=== PATIENT | female | born 1950 | race Caucasian/White ===

== ENCOUNTER 2020-12-15 06:23 | Day surgery (SDC) | payer OTHER ==
[2020-12-13 15:16] LABS: Absolute Lymphocytes (CBC) 1.8 K/uL (0.7-4.9); Basophils % 0.5 % (0-1.3); Hematocrit 38.3 % (36.0-45.0); Lymphocytes % 25.6 % (15.3-44.8); MPV 7.1 fL (7.6-11.3); RBC Red Blood Cell Count 4.23 M/uL (3.86-4.86)
--- NOTE | 2020-12-13 16:23 | RAD REPORT ---
EXAM DESCRIPTION: RAD - Chest Pa And Lat (2 Views) - 12/13/2020 3:55 pm CLINICAL HISTORY: PRE OP SCREENING COMPARISON: No comparisons FINDINGS: No evidence of edema or pneumonia. The heart size is within normal limits.No acute osseous abnormality. No significant pleural effusions or pneumothorax. Surgical clips in the right upper patricia drant IMPRESSION: No acute cardiopulmonary disease.
--- NOTE | 2020-12-14 16:57 | EKG ---
Test Date: 2020-12-13 Test Time: 14:18:07 Publicity Agent: RYAN MEASUREMENT RESULTS: Intervals: Rate: 59 GA: 144 QRSD: 84 QT: 424 QTc: 419 [place]: P: 52 GA: 144 QRS: 42 T: 16 INTERPRETIVE STATEMENTS: Sinus bradycardia Nonspecific T wave abnormality Abnormal ECG No previous ECG available for comparison Electronically Signed On 12-14-20 16:53:48 CDT by Jake Davidson
[2020-12-15] MEDS ORDERED: Ringers Lactate 1,000 ML IV ONE ×2 (07:07→11:15)
[2020-12-15] MEDS ORDERED: CEFAZOLIN/SWI 1gm 0 GM/0 ML SYR ONE (07:07)
[2020-12-15] MEDS ORDERED: METHYLENE BLUE 0.5% 10 ML AMP ONE (09:32)
[2020-12-15] MEDS ORDERED: MIDAZOLAM HCL 2 MG/2 ML INJ ONE (09:46)
[2020-12-15] MEDS ORDERED: FENTANYL CITR 250 MCG/5 ML ONE (09:47)
[2020-12-15] MEDS ORDERED: propofoL 200 MG/20 ML VIAL IV ONE (09:47)
[2020-12-15] MEDS ORDERED: ROCURONIUM 50 MG/5 ML VIAL IV ONE (09:48)
[2020-12-15] MEDS ORDERED: LIDOCAINE 2% MPF 5 ML VIAL ONE (09:48)
[2020-12-15] MEDS ORDERED: ONDANSETRON 4 MG/2 ML VIAL ONE (10:03)
[2020-12-15] MEDS ORDERED: dexAMETHasone 10 MG/ML VIAL ONE (10:03)
[2020-12-15] MEDS ORDERED: CEFAZOLIN/SWI 1gm 1 GM/10 ML SYR ONE (10:20)
[2020-12-15] MEDS ORDERED: GLYCOPYRROLATE 0.2 MG/ML SYR ONE (10:59)
[2020-12-15] MEDS ORDERED: KETOROLAC 30 MG/ML INJ ONE (11:11)
[2020-12-15] MEDS ORDERED: Mastisol Adhesive Liq ONE (11:22)
--- NOTE | 2020-12-15 11:42 | RAD REPORT ---
EXAM DESCRIPTION: NM - Lymphoscintigraphy - 12/15/2020 7:44 am CLINICAL HISTORY: Breast cancer COMPARISON: None. TECHNIQUE: Four injections of 0.01 millicuries technetium filtered sulfur colloid administered into the the michael arerolar region of the right breast. The injections were placed at Twelve o'clock, 3 o'c lock, 6 o'clock and 9 o'clock positions. Subsequently a scintigram was obtained which demonstrated the radiotracer within these locations. IMPRESSION: Right breast lymphoscintigram FINDINGS: Four injections of 0.1 millicurie of technetium filtered sulfur colloid was performed arou nd the nipple.
--- NOTE | 2020-12-15 11:44 | RAD REPORT ---
EXAM DESCRIPTION: US - Brst,Preop NL Wire Init w/Guid - 12/15/2020 8:14 am CLINICAL HISTORY: Breast cancer FINDINGS: The skin, subcutaneous tissues and breast tissue were anesthetized with lidocaine. Under sonographic guidance a Kopan's hook wire was placed into the suspicious mass at the 5 o'clock p osition in the left breast. The patient then left for the surgical department IMPRESSION: Ultrasound-guided needle wire localization of a left breast mass
[2020-12-15] MEDS: MORPHINE 4 MG/ML SYR ONE ×2 (11:56→12:01)
[2020-12-15 12:11] VITALS: O2SAT 96
--- NOTE | 2020-12-15 12:37 | OP ---
Date of Procedure: 12/15/2020 Surgeon: Lobo Tate MD Video Game Designer: CHARITY Mcpherson. Preoperative Diagnosis: Left breast cancer. Postoperative Diagnosis: Left breast cancer. Procedures: Needle localization, left breast mastectomy and sentinel node biopsy. Estimated Blood Loss: Minimal. Specimens: [place] node, which was negative for metastatic disease and left mastectomy, margins wer e free. Findings: As above. Anesthesia: General. Complications: None. Drains: FROILAN #10 flat x1. Disposition: The patient tolerated the procedure in stable condition and taken to Recovery in good g eneral condition. Procedure In Detail: The patient was brought to the OR and placed in supine position. General anest hesia begun. The patient was prepped and draped in the usual sterile fashion after the patient was i njected with blue dye under sterile conditions around the nipple areolar complex and the breast was m assaged for 5 minutes. Then once the patient was prepped and draped, tunneling device was used to id entify the sentinel node on the left axilla. All the appropriate counts were recorded and visible no n-blue lymph node was identified in the left axilla 2 or 3 cm and then sent to pathology and no evide nce of metastatic disease was identified. This wound was irrigated, cleaned and then bleeding contro lled with cautery, and a 3-0 chromic was used to approximate the subcutaneous tissue and close the sk in. Then, ellipse of skin approximately 20 x 10 cm was made around the needle localization and the n ipple-areolar complex in the left breast and then flaps were created superiorly to the clavicle, infe riorly to the insertion of the rectus abdominis muscle, laterally to the anterior border of the latis simus dorsi muscle, and then medially to the sternal edge and then all the breast tissue off the pect oralis fascia was removed and sent to pathology. Confirmation was made that the specimen was in ther e with good margins. The entire wound was irrigated. Bleeding controlled with cautery. Tyron-Pra tt drain #10 flat placed and secured with 3-0 nylon. A 2-0 chromic and 3-0 chromic were used to appr oximate the subcutaneous tissue and close the skin. Sterile dressing applied. The patient awakened and taken to Recovery in good general condition. Discharge Note: The patient will go to Day Surgery and home when stable. Disposition: Home. Condition: Stable. Discharge Instructions: Resume home medications and diet. Activity as tolerated. No heavy lifting. Keep dressing clean, dry. Sponge bath only. Record FROILAN q.12. Bring records to the office __ incentive spirometry as ordered. Tylenol No.3 one tablet p.o. q.4 p.r.n. pain, Keflex 500 mg p.o. q.6. /MODL Voice ID: [id number] Report ID: [id number]
[2020-12-15] MEDS ORDERED: HYDROCODONE/APAP 7.5/325 MG TAB ONE (13:02)
[2020-12-15 14:09] VITALS: BP 161/75; TEMP 98
== END 2020-12-15 13:48 | disposition home or self-care (01) ==
LOC: RAD 06:23
PROVIDERS: ATTEND Surgery
PROC: 07B60ZX Excision of Left Axillary Lymphatic, Open Approach, Diagnostic (ICD-10-PCS; 2020-12-15)
PROC: 0HTU0ZZ Resection of Left Breast, Open Approach (ICD-10-PCS; principal; 2020-12-15 09:45)
PROC: 07D63ZX Extraction of Left Axillary Lymphatic, Percutaneous Approach, Diagnostic (ICD-10-PCS; 2020-12-15 09:45)
DX: C50.812 Malignant neoplasm of overlapping sites of left female breast (principal); Z17.0 Estrogen receptor positive status [ER+]; Z20.822 Contact with and (suspected) exposure to COVID-19
CPT/HCPCS: 19303; 93005; 85025; 80048; 36415; 88307 ×2; 88333; 88334; 71046; 19285; 78195; 38500; 38900; U0003; J2704; J2250; J3010; J1100; J0690; J7120 ×2; J2405; A9541